=== PATIENT | male | born 1965 | race Two or more races ===

== ENCOUNTER 2019-08-10 08:04 | Emergency (ER) | payer MEDICAID, OTHER ==
[~2019-08-10] VITALS: Ht 177.8 cm; Wt 89.6 kg
[2019-08-10 08:07] VITALS: BP 102/72
[2019-08-10] MEDS ORDERED: CEFAZOLIN 1,000 MG IM ONE (08:30)
[2019-08-10] MEDS ORDERED: PLEASE ENTER ALLERGIES MC SCH (08:30)
[2019-08-10] MEDS ORDERED: CEFAZOLIN 1,000 MG ONE (08:36)
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
--- NOTE | 2019-08-10 09:10 | NUR ---
SLEEPING, NO DISTRESS
[2019-08-10] MEDS ORDERED: NEOSPORIN OINT. PKT 1 PACKET ONE (09:19)
[2019-08-31] MEDS ORDERED: CEFD300C37 PO (13:04)
[2019-08-31] MEDS ORDERED: MULT-449 PO (13:04)
[2019-08-31] MEDS ORDERED: THIA100T67 PO (13:04)
[2019-08-31] MEDS ORDERED: FOLI-17 PO (13:04)
== END 2019-08-10 09:55 | disposition home or self-care (01) ==
LOC: ED 09:00
DX: L03.115 Cellulitis of right lower limb (principal); Z59.0 Homelessness
CPT/HCPCS: 73590; 96372; 99283; J0690

== ENCOUNTER 2019-09-06 09:18 | Inpatient (IN) | payer MEDICAID, OTHER ==
[~2019-09-06] VITALS: Ht 177.8 cm; Wt 88.5 kg
[~2019-09-06 09:18] MED LIST: CEFD300C37 PO; FOLI-17 PO; MULT-449 PO; THIA100T67 PO
--- NOTE | 2019-09-06 09:33 | NUR ---
GERARDO SMITH AT BEDSIDE FOR EVALUATION
[2019-09-06] MEDS ORDERED: SODIUM CHLORIDE 0.9% 1,000 ML IV ONE (10:28)
--- NOTE | 2019-09-06 10:29 | NUR ---
PT RESTING IN BED, CALL LIGHT IN REACH
[2019-09-06 11:09] LABS: BASOPHILS # (AUTO) 0.06 x10^3/uL (0-0.1); BASOPHILS % (AUTO) 1 % (0-1); EOSINOPHILS # (AUTO) 0.18 x10^3/uL (0-0.4); EOSINOPHILS % (AUTO) 4 % (1-7); LYMPHOCYTES # (AUTO) 1.78 x10^3/uL (1-3.4); LYMPHOCYTES % (AUTO) 41 % (22-44); MD NO; MEAN CORPUSCULAR HEMOGLOBIN 34.9 pg (27.5-34.5); MEAN CORPUSCULAR HGB CONC 33.5 g/dL (33.2-36.2); MEAN CORPUSCULAR VOLUME 104.2 fL (81-97); MEAN PLATELET VOLUME 6.3 fL (7.4-10.4); MONOCYTES # (AUTO) 0.35 x10^3/uL (0.2-0.8); MONOCYTES % (AUTO) 8 % (2-9); NEUTROPHILS # (AUTO) 2.02 x10^3/uL (1.8-6.8); NEUTROPHILS % (AUTO) 46 % (42-75); PLATELET COUNT 608 x10^3/uL (130-400); RED BLOOD COUNT 3.87 x10^6/uL (4.38-5.82); RED CELL DISTRIBUTION WIDTH 13.3 % (9.4-14.8)
[2019-09-06 11:18] LABS: ALANINE AMINOTRANSFERASE 32 U/L (12-78); ALBUMIN 2.9 g/dL (3.4-5.0); ANION GAP 10 mmol/L (5-15); CALCIUM 8.2 mg/dL (8.5-10.1); CHLORIDE 112 mmol/L (98-107)
[2019-09-06 11:21] LABS: ALKALINE PHOSPHATASE 94 U/L (45-117); BILIRUBIN,TOTAL 0.3 mg/dL (0.2-1.0); CREATININE 0.75 mg/dL (0.7-1.3); TOTAL PROTEIN 7.6 g/dL (6.4-8.2)
[2019-09-06] MEDS ORDERED: CEFTRIAXONE PMX 1GM/50ML 50 ML ONE (11:25)
[2019-09-06] MEDS ORDERED: CEFTRIAXONE PMX 1GM/50ML 50 ML IV ONE (11:30)
[2019-09-06] MEDS ORDERED: AZITHROMYCIN 500 MG in SODIUM CHLORIDE 0.9% 250 ML IV ONE (11:30)
--- NOTE | 2019-09-06 12:04 | NUR ---
pt resting in bed, call light in reach.
[2019-09-06] MEDS: SODIUM CHLORIDE 0.9% 1,000 ML IV SCH (12:11)
[2019-09-06] MEDS ORDERED: HEPARIN 5,000 UNITS/ML, 1ML ONE ×2 (12:21→20:43)
[2019-09-06] MEDS: HEPARIN 5,000 UNITS/ML, 1ML SQ SCH ×2 (12:24→20:47)
--- NOTE | 2019-09-06 12:25 | NUR ---
DR. GUERRA AT BEDSIDE
[2019-09-06] MEDS ORDERED: ONDANSETRON ODT 4 MG PO PRN (12:30)
[2019-09-06] MEDS ORDERED: LORazepam 2 MG/ML, 1ML IV PRN (12:30)
[2019-09-06] MEDS ORDERED: ONDANSETRON 2MG/ML, 2ML IVPush PRN (12:30)
[2019-09-06] MEDS ORDERED: LORazepam 1MG TABLET PO PRN ×2 (12:30)
--- NOTE | 2019-09-06 14:56 | NUR ---
PT RESTING IN BED, CALL LIGHT IN REACH.
--- NOTE | 2019-09-06 15:09 | NUR ---
[employer]: HOSPITAL BED REQUESTED FROM [facility]
--- NOTE | 2019-09-06 15:15 | NUR ---
HOSPITAL BED REQUESTED.
--- NOTE | 2019-09-06 16:11 | NUR ---
RECEIVED REPORT FROM JAYMIE LUNA AND ASSUMED CARE OF PT. PT ONTO HOSPITAL BED. WILL CONTINUE TO MONITOR
--- NOTE | 2019-09-06 18:52 | NUR ---
BEDSIDE REPORT FROM JEREMY DENSON
--- NOTE | 2019-09-06 20:41 | NUR ---
REPORT TO JEREMY COON
--- NOTE | 2019-09-06 20:51 | NUR ---
pt A+Ox4 and watching tv in room. pt medicated with heparin per emar. pt denies any withdrawal symptoms and denies any pain.
[2019-09-06] MEDS: LORazepam 0.5MG TABLET PO PRN (23:36)
[2019-09-07 00:32] VITALS: BP 128/80
[2019-09-07] MEDS: ACETAMINOPHEN 325 MG TABLET PO PRN ×2 (00:39→10:53)
[2019-09-07] MEDS: LORazepam 2 MG/ML, 1ML IV PRN ×2 (02:15→04:45)
[2019-09-07] MEDS: HEPARIN 5,000 UNITS/ML, 1ML SQ SCH ×3 (04:44→20:40)
[2019-09-07] MEDS: SODIUM CHLORIDE 0.9% 1,000 ML IV SCH ×2 (04:45→20:40)
[2019-09-07 06:35] LABS: BASOPHILS # (AUTO) 0.05 x10^3/uL (0-0.1); BASOPHILS % (AUTO) 1 % (0-1); EOSINOPHILS # (AUTO) 0.17 x10^3/uL (0-0.4); EOSINOPHILS % (AUTO) 4 % (1-7); LYMPHOCYTES # (AUTO) 0.85 x10^3/uL (1-3.4); LYMPHOCYTES % (AUTO) 17 % (22-44); MD NO; MEAN CORPUSCULAR HEMOGLOBIN 35.8 pg (27.5-34.5); MEAN CORPUSCULAR HGB CONC 33.9 g/dL (33.2-36.2); MEAN CORPUSCULAR VOLUME 105.3 fL (81-97); MEAN PLATELET VOLUME 6.6 fL (7.4-10.4); MONOCYTES # (AUTO) 0.31 x10^3/uL (0.2-0.8); MONOCYTES % (AUTO) 6 % (2-9); NEUTROPHILS # (AUTO) 3.54 x10^3/uL (1.8-6.8); NEUTROPHILS % (AUTO) 72 % (42-75); PLATELET COUNT 576 x10^3/uL (130-400); RED BLOOD COUNT 3.56 x10^6/uL (4.38-5.82); RED CELL DISTRIBUTION WIDTH 13.6 % (9.4-14.8)
[2019-09-07 06:38] LABS: ANION GAP 4 mmol/L (5-15); CHLORIDE 111 mmol/L (98-107)
[2019-09-07 07:53] VITALS: BP 126/78
[2019-09-07] MEDS ORDERED: ACET325T26 PO (10:14)
[2019-09-07 12:40] VITALS: BP 137/86
[2019-09-07 18:49] VITALS: BP 141/76
[2019-09-07 19:04] VITALS: BP 102/72
[2019-09-07] MEDS: LORazepam 0.5MG TABLET PO PRN (20:40)
[2019-09-08 00:25] VITALS: BP 118/68
[2019-09-08 05:22] VITALS: BP 120/78
[2019-09-08] MEDS ORDERED: MAGNESIUM SULFATE PMX 2GM/50ML 50 ML IV ONE (05:30)
[2019-09-08] MEDS: LORazepam 2 MG/ML, 1ML IV PRN ×3 (05:52→22:19)
[2019-09-08] MEDS: HEPARIN 5,000 UNITS/ML, 1ML SQ SCH ×3 (05:53→20:12)
[2019-09-08 07:08] VITALS: BP 119/57
[2019-09-08 07:27] VITALS: BP 116/78
[2019-09-08 07:37] LABS: ANION GAP 10 mmol/L (5-15); CALCIUM 8.3 mg/dL (8.5-10.1); CHLORIDE 108 mmol/L (98-107); CREATININE 0.78 mg/dL (0.7-1.3)
[2019-09-08 07:39] LABS: BASOPHILS # (AUTO) 0.07 x10^3/uL (0-0.1); BASOPHILS % (AUTO) 1 % (0-1); EOSINOPHILS # (AUTO) 0.22 x10^3/uL (0-0.4); EOSINOPHILS % (AUTO) 4 % (1-7); LYMPHOCYTES # (AUTO) 1.16 x10^3/uL (1-3.4); LYMPHOCYTES % (AUTO) 19 % (22-44); MD NO; MEAN CORPUSCULAR HGB CONC 33.4 g/dL (33.2-36.2); MONOCYTES # (AUTO) 0.46 x10^3/uL (0.2-0.8); MONOCYTES % (AUTO) 7 % (2-9); NEUTROPHILS # (AUTO) 4.21 x10^3/uL (1.8-6.8); NEUTROPHILS % (AUTO) 69 % (42-75); PLATELET COUNT 507 x10^3/uL (130-400); RED BLOOD COUNT 3.69 x10^6/uL (4.38-5.82); RED CELL DISTRIBUTION WIDTH 13.4 % (9.4-14.8)
[2019-09-08] MEDS ORDERED: CALCIUM CHLORIDE 13.6 MEQ in SODIUM CHLORIDE 0.9% 100 ML IV ONE (08:00)
[2019-09-08] MEDS: POTASSIUM CHLORIDE 20 MEQ TAB.ER.PRT PO SCH ×2 (08:38→16:24)
[2019-09-08] MEDS ORDERED: ACETAMINOPHEN 650 MG/20.3 ML UDC ONE ×2 (11:12→11:13)
[2019-09-08] MEDS: ACETAMINOPHEN 325 MG TABLET PO PRN (11:17)
[2019-09-08 11:58] VITALS: BP 121/74
[2019-09-08 20:07] VITALS: BP 133/76
[2019-09-09 02:13] VITALS: BP 124/68
[2019-09-09] MEDS: SODIUM CHLORIDE 0.9% 1,000 ML IV SCH ×2 (04:48→20:32)
[2019-09-09] MEDS: HEPARIN 5,000 UNITS/ML, 1ML SQ SCH ×3 (04:49→20:31)
[2019-09-09 04:50] LABS: BASOPHILS # (AUTO) 0.11 x10^3/uL (0-0.1); BASOPHILS % (AUTO) 2 % (0-1); EOSINOPHILS # (AUTO) 0.29 x10^3/uL (0-0.4); EOSINOPHILS % (AUTO) 5 % (1-7); LYMPHOCYTES # (AUTO) 1.34 x10^3/uL (1-3.4); LYMPHOCYTES % (AUTO) 24 % (22-44); MD NO; MEAN CORPUSCULAR HGB CONC 33.4 g/dL (33.2-36.2); MEAN CORPUSCULAR VOLUME 104.8 fL (81-97); MEAN PLATELET VOLUME 6.8 fL (7.4-10.4); MONOCYTES % (AUTO) 6 % (2-9); NEUTROPHILS # (AUTO) 3.47 x10^3/uL (1.8-6.8); NEUTROPHILS % (AUTO) 63 % (42-75); PLATELET COUNT 428 x10^3/uL (130-400); RED BLOOD COUNT 3.67 x10^6/uL (4.38-5.82); RED CELL DISTRIBUTION WIDTH 13.5 % (9.4-14.8)
[2019-09-09 05:00] LABS: ANION GAP 5 mmol/L (5-15); CALCIUM 7.9 mg/dL (8.5-10.1); CHLORIDE 111 mmol/L (98-107); CREATININE 0.75 mg/dL (0.7-1.3)
[2019-09-09 07:09] VITALS: BP 123/77
[2019-09-09 12:44] VITALS: BP 117/70
[2019-09-09 15:38] VITALS: BP 148/85
[2019-09-09] MEDS ORDERED: POTASSIUM CHLORIDE 20 MEQ TAB.ER.PRT PO ONE (17:30)
[2019-09-09] MEDS ORDERED: MAGNESIUM SULFATE PMX 2GM/50ML 50 ML IV ONE (17:30)
[2019-09-09] MEDS: CALCIUM CARBONATE 500 MG TABLET PO SCH ×2 (17:56→20:32)
[2019-09-09] MEDS: METOPROLOL TARTRATE 25 MG TAB PO SCH (17:56)
[2019-09-09] MEDS ORDERED: CALCIUM CHLORIDE 13.6 MEQ in SODIUM CHLORIDE 0.9% 100 ML IV ONE (18:00)
[2019-09-09 20:35] VITALS: BP 147/93
[2019-09-10 02:31] VITALS: BP 140/81
[2019-09-10] MEDS: HEPARIN 5,000 UNITS/ML, 1ML SQ SCH ×2 (05:06→12:49)
[2019-09-10 06:13] LABS: CHLORIDE 109 mmol/L (98-107)
[2019-09-10 06:21] LABS: ANION GAP 7 mmol/L (5-15); CALCIUM 9.2 mg/dL (8.5-10.1); CREATININE 0.74 mg/dL (0.7-1.3)
[2019-09-10 06:27] VITALS: BP 152/87
[2019-09-10] MEDS ORDERED: METO25TA35 PO (08:49)
[2019-09-10] MEDS: CALCIUM CARBONATE 500 MG TABLET PO SCH (09:17)
[2019-09-10] MEDS: METOPROLOL TARTRATE 25 MG TAB PO SCH (09:17)
[2019-09-10 12:50] VITALS: BP 132/81
[2019-09-10] MEDS: SODIUM CHLORIDE 0.9% 1,000 ML IV SCH (13:54)
== END 2019-09-10 14:15 | disposition home or self-care (01) | DRG 91 ==
LOC: ED 10:37 → EDIP 12:12 → 4NW 21:50 → 5SO 09-09 14:55 → DCLOUNGE 09-10 13:58
PROVIDERS: ADMIT Internal Medicine; ATTEND Hospitalist
DX: G92 Toxic encephalopathy (principal); J15.9 Unspecified bacterial pneumonia; E87.0 Hyperosmolality and hypernatremia; F10.239 Alcohol dependence with withdrawal, unspecified; I47.2 Ventricular tachycardia; J44.0 Chronic obstructive pulmonary disease with (acute) lower respiratory infection; J98.11 Atelectasis; D53.9 Nutritional anemia, unspecified; E83.42 Hypomagnesemia; E83.51 Hypocalcemia; F10.220 Alcohol dependence with intoxication, uncomplicated; Y90.2 Blood alcohol level of 40-59 mg/100 ml; D47.3 Essential (hemorrhagic) thrombocythemia; Z20.828 Contact with and (suspected) exposure to other viral communicable diseases; Z87.891 Personal history of nicotine dependence; Z59.0 Homelessness; Z56.0 Unemployment, unspecified
CPT/HCPCS: 36415; 71045; 80048; 80053; 80307; 82330; 83605; 83735; 84145; 84443; 85025; 87040; 93005; 93308; 93321; 93325; 96361; 96365; 96366; G0378; J0456; J0696; J1644; J2060; J3475; J7030; J7050; U0001-CS